=== PATIENT | male | born 1990 | race Caucasian/White ===

== ENCOUNTER 2024-12-05 10:05 | Outpatient (REF) | payer MEDICAID, SELFPAY ==
--- OUTSIDE RECORDS SUMMARY | 2024-12-05 09:15 | XMS_ITS | Encounter Summary ---
Author Organization [employer] Address [address] [facility] [address] [place] [address] Care Team Providers Care Nurse Coordinator Name Role Phone Brandie Reyez CNP Primary Care Provider [phone] Encounter Details Date Type Department Care Team (Late st Contact Info) Description 12/05/2024 9:15 AM EDT Office Visit [facility] [address] [place], [place] [phone] Brandie Reyez CNP [address] [place], [place] [phone] Encounter to establish care (Primary Dx); Encounter for immunization Social History Tobacco Use Types Packs/Day Years Used Date Smoking Tobacco: Never Smokeless Tobacco: Never Tobacco Cessation:Counseling Given: No Alcohol Use Standard Drinks/Week Comments Never 0 (1 standard drink = 0.6 oz pur e alcohol) Depression Answer Date Recorded Patient Health Questionnaire-9 Score 0 12/05/2024 Patient Health Questionnaire-9 Score 0 12/05/2024 Last PHQ-9: Questionnaire Data Not on file 0 12/05/2024 Housing Stability Answer Date Recorded What is your housing situation today? I have dania lawrence 08/19/[address] you li ve. Do you have problems with any of the following? None of the above 08/19/2024 Food Insecurity Answer Date Recorded Within the past 12 months, y ou worried that your food would run out before you got money to buy more: Never True 08/19/2024 Within the past 12 months,th e food you bought just didn't last and you didn't have enough money to get more: Never True Transportation Answer Date Recorded In the past 12 months, has l ack of transportation kept you from medical appts, meetings, work or from getting things needed for daily living? No 08/19/2024 Utilities Answer Date Recorded In the past 12 months, has t he electric, gas, oil or water company threatened to shut off services in your home? No 08/19/2024 Depression Answer Date Recorded Patient Health Questionnaire-2 Score 0 12/05/2024 Internet Access Answer Date Recorded Internet Access Q1 Yes 08/19/2024 Internet Access Q2 Not on file 08/19/2024 Sex and Gender Information Value Date Recorded Sex Assigned at Male 07/17/2023 3:57 PM EDT Legal Sex Male 2:32 PM EDT Gender Identity Male 07/17/2023 3:57 PM EDT Sexual Orientation Straight 08/25/2024 3: 45 PM EDT documented as of this encounter Last Filed Vital Signs Vital Sign Reading Time Taken Comments Blood Pressure 122/82 12/05/2024 9:15 AM EDT Pulse 68 12/05/2024 9:15 AM EDT Temperature 36.7 C (98.1 F) 12/05/2024 9:15 AM EDT Respiratory Rate 16 12/05/2024 9:15 AM EDT Oxygen Saturation - - Inhaled Oxygen Concentration - - Weight 103 kg (228 lb) 12/05/2024 9:15 AM EDT Height 177.8 cm (5' 10 ) 12/05/2024 9:15 AM EDT Body Mass Index 32.71 12/05/2024 9:15 AM EDT documented in this encounter Functional Status * Over the past 2 weeks, how often have you been bothered by any of the following problems? Question Answer Date of Assessment Author Patient Health Questionnaire -2 Score 0 12/05/2024 10:13 AM EDT Sa layne Alcala MA * Little interest or pleasure in doing things Answer Date of Assessment Author Not at all 12/05/2024 10:13 AM EDT Sushma Damian MA * Feeling down, depressed, or hopeless Answer Date of Assessment Author Not at all 12/05/2024 10:13 AM EDT Sushma Damian MA * Trouble falling or staying asleep, or sleeping too much Answer Date of Assessment Author Not at all 12/05/2024 10:13 AM EDT Sushma Damian MA * Feeling tired or having little energy Answer Date of Assessment Author Not at all 12/05/2024 10:13 AM EDT Sushma Damian MA * Poor appetite or overeating Answer Date of Assessment Author Not at all 12/05/2024 10:13 AM EDT Sushma Damian MA * Feeling bad about yourself - or that you are a failure or have let yourself or your family down Answer Date of Assessment Author Not at all 12/05/2024 10:13 AM EDT Sushma Damian MA * Trouble concentrating on things, such as reading the newspaper or watching television Answer Date of Assessment Author Not at all 12/05/2024 10:13 AM EDT Sushma Damian MA * Moving or speaking so slowly that other people could have noticed? Or the opposite - being so fidgety or restless that you have been moving around a lot more than usual. Answer Date of Assessment Author Not at all 12/05/2024 10:13 AM EDT Sushma Damian MA * Thoughts that you would be better off or hurting yourself in some way Answer Date of Assessment Author Not at all 12/05/2024 10:13 AM JAKET Sushma Damian MA * Patient Health Questionnaire-9 Score Answer Date of Assessment Author 0 12/05/2024 10:13 AM JAKET Sushma Damian MA * Over the last 2 weeks, how often have you been bothered by any of the following problems? Question Answer Date of Assessment Author Feeling nervous, anxious, or on edge 0 12/05/2024 10:10 AM EDT Sa layne Alcala MA Not being able to stop or control worrying 0 12/05/2024 10:10 AM JAKET Sa layne Alcala MA Worrying too much about different things 0 12/05/2024 10:10 AM EDT Sa layne Alcala MA Trouble relaxing 0 12/05/2024 10:10 AM JAKET Sushma Alcala MA Being so restless that it is hard to sit still 0 12/05/2024 10:10 AM EDT Sa layne Alcala MA Becoming easily annoyed or irritable 0 12/05/2024 10:10 AM EDT Sa layne Alcala MA Feeling afraid as if somethi ng awful might happen 0 12/05/2024 10:10 AM EDT Sa layne Alcala MA ARSENIO-7 Total Score 0 12/05/2024 10:10 AM EDT Sushma Alcala MA documented as of this encounter Progress Notes * Brandie Reyez CNP - 12/05/2024 9:15 AM EDT Subjective: Deep Ramires is a 34 y.o. male who presents to the office for a new patient visit. Previous PCP unknown. Interim history: Past surgical history significant for a skin graft performed approximately one month ago for a wound; no associated injury. Hospitalized for the skin graft procedure. No current open wound; skin graft site is enclosed and healing well Current concerns: Denies any acute concerns today Problem List[1] Surgical History[2] Family History[3] Social History Living situation: secure housing Substance use: denies substance use besides marijuana. Sexual activity: Sexually active with AFAB partner, declines STI screening today. Mental health: Denies any mental health concerns today Current Medications[4] There is no immunization history on file for this patient. Allergies[5] Review of Systems Constitutional: Negative for chills, fatigue, fever and unexpected weight change. HENT: Negative. Eyes: Negative. Respiratory: Negative for chest tightness, shortness of breath and wheezing. Cardiovascular: Negative for chest pain and palpitations. Gastrointestinal: Negative. Endocrine: Negative. Genitourinary: Negative. Musculoskeletal: Negative. Allergic/Immunologic: Negative. Neurological: Negative. Psychiatric/Behavioral: Negative. Vitals: 12/05/24 0915 BP: 122/82 BP Location: Left arm Patient Position: Sitting BP Cuff Size: Adult Pulse: 68 Resp: 16 Temp: 98.1 ??F (36.7 ??C) TempSrc: Oral Weight: 228 lb (103 kg) Height: 5' 10 (1.778 m) Physical Exam Vitals reviewed. Constitutional: General: He is not in acute distress. Appearance: Normal appearance. He is not ill-appearing, toxic-appearing or diaphoretic. HENT: Head: Normocephalic and atraumatic. Cardiovascular: Rate and Rhythm: Normal rate and regular rhythm. Pulses: Normal pulses. Heart sounds: Normal heart sounds. No murmur heard. No friction rub. No gallop. Pulmonary: Effort: Pulmonary effort is normal. No respiratory distress. Breath sounds: Normal breath sounds. No stridor. No wheezing, rhonchi or rales. Chest: Chest wall: No tenderness. Musculoskeletal: Right lower leg: No edema. Left lower leg: No edema. Neurological: General: No focal deficit present. Mental Status: He is alert and oriented to person, place, and time. Mental status is at baseline. Psychiatric: Mood and Affect: Mood normal. Behavior: Behavior normal. Thought Content: Thought content normal. Judgment: Judgment normal. Problem List Items Addressed This Visit None Visit Diagnoses Encounter to establish care - Primary -34 y/o Male without any PMH. No concerns today. Normal PE. - Ordered routine fasting blood work including liver function tests, kidney function tests, anemia screening, and cholesterol panel. Instructed to present to the lab with name and date of for specimen collection. - Advised that if laboratory results are normal, no follow-up communication will occur. Instructed to call the office with any specific questions about laboratory results. Will be contacted only if any laboratory results are abnormal. - Planned to administer first dose of HPV vaccine today however facility does not have adult HPV vaccinations. Will call pharmacy to order vaccination. Plan to catch-up HPV vaccination series due to age outside standard range. Scheduled subsequent HPV vaccine doses: second dose in approximately 2 months, third dose in approximately 6 months. Nurse visits to be arranged for administration of the remaining doses. - Recommended annual physical examination, with next routine physical to be scheduled in one year. Advised to contact the office for any acute concerns or new health issues prior to the next annual visit. Routine Screening and Health Maintenance Optometry: Yes has vision home Dental: Yes has dental home Lab Review: no lab studies available for review at time of visit, new studies ordered today Routine Cancer Screening Colon CA: n/a Lung CA: n/a PSA: n/a This note was drafted using Ambient (AI) technology. The patient/patient's guardian has been informed and has consented to the use of this technology: Yes [1] There is no problem list on file for this patient. [2] No past surgical history on file. [3] No family history on file. [4] Current Outpatient Medications Medication Sig Dispense Refill Acetaminophen Extra Strength 500 MG tablet TAKE 2 TABLETS BY MOUTH EVERY 6 HOURS NEEDED FOR FEVER (Patient not taking: Reported on 12/05/2024) cephalexin (Keflex) 500 MG capsule Take 1 capsule by mouth every 6 (six) hours. (Patient not taking: Reported on 12/05/2024) ibuprofen 600 MG tablet Take 1 tablet by mouth every 6 (six) hours during the day. (Patient not taking: Reported on 12/05/2024) mupirocin (Bactroban) 2 % ointment apply topically 3 times a day for 7 days (Patient not taking: Reported on 12/05/2024) oxyCODONE (Oxy-IR) 5 MG immediate release capsule TAKE 1 CAPSULE BY MOUTH EVERY 6 HOURS FOR 3 DAYS, NEEDED FOR PAIN (Patient not taking: Reported on 12/05/2024) oxyCODONE (Roxicodone) 5 MG immediate release tablet TAKE 1 TABLET BY MOUTH EVERY 6 HOURS NEEDEDFOR PAIN FOR 5 DAYS (Patient not taking: Reported on 12/05/2024) valACYclovir (Valtrex) 1 g tablet Take 1 tablet by mouth every 6 (six) hours during the day. (Patient not taking: Reported on 12/05/2024) valACYclovir (Valtrex) 500 MG tablet Take 1 tablet by mouth 2 times daily. (Patient not taking: Reported on 12/05/2024) No current facility-administered medications for this visit. [5] No Known Allergies documented in this encounter Plan of Treatment Scheduled Orders Name Type Priority Associated Diagnoses Orde r Schedule Lipid Panel, Standard Lab Routine Encounter to establish care Expected: 12/05/2024 (Approximate), Expires: 12/05/2025 CBC auto differential Lab Routine Encounter to establish care Expected: 12/05/2024 (Approximate), Expires: 12/05/2025 HIV-1/2 Antigen and Antibodies, Fourth Generation, with Reflexes Lab Routine Encounter to establish care Expected: 12/05/2024 (Approximate), Expires: 12/05/2025 Hepatitis C Antibody with Reflex to HCV, RNA, Quantitative, Real-Time PCR Lab Routine Encounter to establish care Expected: 12/05/2024, Expires: 12/05/2025 TSH W/Reflex to FT4 Lab Routine Encounter to establish care Expected: 12/05/2024 (Approximate), Expires: 12/05/2025 Comprehensive Metabolic Panel Lab Routine Encounter to establish care Expected: 12/05/2024 (Approximate), Expires: 12/05/2025 Hepatitis B Surface Antibody, Qualitative Lab Routine Encounter to establish care Expected: 12/05/2024 (Approximate), Expires: 12/05/2025 Hepatitis B Core Antibody, Total Lab Routine Encounter to establish care Expected: 12/05/2024 (Approximate), Expires: 12/05/2025 Hepatitis B surface antigen, EIA Lab Routine Encounter to establish care Expected: 12/05/2024 (Approximate), Expires: 12/05/2025 documented as of this encounter Visit Diagnoses Diagnosis Encounter to establish care- Primary Encounter for immunization documented in this encounter Additional Health Concerns Assessment Noted Time PHQ-9 Depression Total Score: 0 12/06/19 10:13 AM EDT documented as of this encounter Care Teams Nurse Coordinator Relationship Specialty Start Date End Date Brandie Reyez CNP [address] [place] [id number] PCP - General Family Medicine 12/05/24 documented as of this encounter
--- OUTSIDE RECORDS SUMMARY | 2024-12-05 10:51 | XMS_ITS | Encounter Summary ---
Author Organization [employer] Address [address] [facility] [address] [place] [address] Care Team Providers Care Contract Lead Name Role Phone Dereje Morrisjeffrey ECKERT Primary Care Provider [phone] Reason for Visit * Reason Onset Date Comments chart prep 12/05/2024 Encounter Details Date Type Department Care Team (Late st Contact Info) Description 12/05/2024 Telephone C [facility] [address] [place] [phone] [address] Sushma [place] chart prep Social History Tobacco Use Types Packs/Day Years Used Date Smoking Tobacco: Never Smokeless Tobacco: Never Alcohol Use Standard Drinks/Week Comments Never 0 [...] PM EDT documented as of this encounter Miscellaneous Notes * Telephone Encounter - Sushma Alcala MA - 12/05/2024 8:40 AM EDT Chart Prep Labs: not applicable Images: not applicable Referrals: not applicable Vaccines due: Covid, Tdap, Hep B, Td, and DTAP, HPV Screenings: STI Overdue care gaps: SBIRT, PHQ-9, and ARSENIO-7 documented in this encounter Plan of Treatment Not on file documented as of this encounter Visit Diagnoses Not on filedocumented in this encounter Additional Health Concerns Assessment Noted Time PHQ-9 Depression Total Score: 0 12/06/19 25 10:13 AM EDT documented as of this encounter Care Teams Contract Lead Relationship Specialty Start Date End Date Brandie Reyez CNP [address] [place] [id number] PCP - General Family Medicine 12/05/24 documented as of this encounter
--- OUTSIDE RECORDS SUMMARY | 2024-12-05 10:51 | XMS_ITS | Clinical Summary ---
Author Organization [employer] Address [address] [facility] [address] [place] [address] Care Team Providers Care Stripper Latex Name Role Phone Barndie Reyez CNP Primary Care Provider [phone] Allergies No known active allergies Medications mupirocin (Bactroban) 2 % ointment apply topically 3 times a day for 7 days 07/18/19 025 Discontinued valACYclovir (Valtrex) 1 g tablet Take 1 tablet by mouth every 6 (six) hours during the day. 07/18/19 25 025 Discontinued Acetaminophen Extra Strength 500 MG tablet TAKE 2 TABLETS BY MOUTH EVERY 6 HOURS NEEDED FOR FEVER 11/08/19 025 Discontinued cephalexin (Keflex) 500 MG capsule Take 1 capsule by mouth every 6 (six) hours. 11/04/19 25 025 Discontinued ibuprofen 600 MG tablet Take 1 tablet by mouth every 6 (six) hours during the day. 11/08/19 25 025 Discontinued oxyCODONE (Oxy-IR) 5 MG immediate release capsule TAKE 1 CAPSULE BY MOUTH EVERY 6 HOURS FOR 3 DAYS, NEEDED FOR PAIN 11/18/19 25 025 Discontinued oxyCODONE (Roxicodone) 5 MG immediate release tablet TAKE 1 TABLET BY MOUTH EVERY 6 HOURS NEEDED FOR PAIN FOR 5 DAYS 11/26/19 025 Discontinued valACYclovir (Valtrex) 500 MG tablet Take 1 tablet by mouth 2 times daily. 11/16/19 025 Discontinued Active Problems No known active problems Encounters Date Type Department Care Team Description 12/05/2024 9:15 AM EDT Office Visit [facility] [address] [place] [address] Brandie Reyez CNP Encounter to establish care (Primary Dx); Encounter for immunization 12/05/2024 Travel 12/05/2024 Telephone [facility] [address] [place] [phone] Sushma Alcala MA chart prep 11/28/2024 Travel from Last 3 Months Immunizations Immunization Administration Dates Next Due Moderna Covid-19 Vaccine 12+ 07/02/2020,06/04/19 21 Tdap 01/26/2021 Social History Tobacco Use Types Packs/Day Years [...] Orientation Straight 08/25/2024 3: 45 PM EDT Last Filed Vital Signs Vital Sign Reading [...] Mass Index 32.71 12/05/2024 9:15 AM EDT Plan of Treatment Health Maintenance Due Date Last Done Comments HIV Screening 1988 Lipid Panel 1988 Family Planning (PISQ) 09/08/2003 HPV Vaccines (1 - Male 3-dos e series) 09/08/2003 Hepatitis C Screening 2006 Hepatitis B Vaccines (1 of 3 - 19+ 3-dose series) 09/08/2007 COVID-19 Vaccine (3 - 2023-2 5 season) 2023 07/02/2020, 06/04/2020 Influenza Vaccine (#1) 2024 SDOH Screening 08/19/2025 08/19/2024 Disability Screening 11/28/2025 11/28/2024 Alcohol/Substance Use Screening 12/05/2025 12/05/2024 Depression Screening 12/05/2025 12/05/2024, 12/05/2024 DTaP/Tdap/Td Vaccines (2 - T d or Tdap) 01/26/2031 01/26/2021 Zoster Vaccines (1 of 2) 2038 RSV Patients and Patients Aged 60 years or older (1 - 1-dose 75+ series) 09/08/2063 Tobacco Screening Discontinued 12/05/2024 HIB Vaccines Aged Out No longer eligi ble based on patient's age to complete this topic Hepatitis A Vaccines Aged Out No long er eligible based on patient's age to complete this topic IPV Vaccines Aged Out No longer eligi ble based on patient's age to complete this topic Meningococcal B Vaccine Aged Out No l onger eligible based on patient's age to complete this topic Meningococcal Vaccine Aged Out No gita javier eligible based on patient's age to complete this topic Pneumococcal Vaccine: Pediatrics (0 to 5 Years) and At-Risk Patients (6 to 49) Years Aged Out No longer eligible based on patient's age to complete this topic RSV under 20 months Aged Out No longe r eligible based on patient's age to complete this topic Rotavirus Vaccines Aged Out No longer eligible based on patient's age to complete this topic Insurance [employer] Care Teams Stripper Latex Relationship Specialty Start Date End Date Brandie Reyez CNP [address] [place] [phone] PCP - General Family Medicine 12/05/24
--- OUTSIDE RECORDS SUMMARY | 2024-12-05 10:51 | XMS_ITS | Encounter Summary ---
Author Organization [employer] Address [address] [facility] [address] [place] [address] Care Team Providers Care Sanding Machine Tender Automatic Name Role Phone Brandie Reyez TOMEKA Primary Care Provider [phone] Encounter Details Date Type Department Care Team (Latest Contact Info) Description 12/05/2024 Travel Social History Tobacco Use Types Packs/Day Years [...] PM EDT documented as of this encounter Functional Status * Over the [...] Not at all 12/05/2024 10:13 AM EDT Ssuhma Damian MA * Poor appetite or overeating [...] 10:13 AM JAKET Sushma Damian MA * Moving or speaking so slowly that other people could have noticed? Or the opposite - being so fidgety or restless that you have been moving around a lot more than usual. Answer Date of Assessment Author Not at all 12/05/2024 10:13 AM JAKET Sushma Damian MA * Thoughts that you would be better off or hurting yourself in some way Answer Date of Assessment Author Not at all 12/05/2024 10:13 AM EDT Sushma Damian MA * Patient Health Questionnaire-9 Score Answer Date of Assessment Author 0 12/05/2024 10:13 AM EDT Sushma Damian MA * Over the last 2 weeks, how often have you been bothered by any of the following problems? Question Answer Date of Assessment Author Feeling nervous, anxious, or on edge 0 12/05/2024 10:10 AM EDT Sa layne Alcala MA Not being able to stop or control worrying 0 12/05/2024 10:10 AM EDT Sa layne Alcala MA Worrying too much about different things 0 12/05/2024 10:10 AM EDT Sa layne Alcala MA Trouble relaxing 0 12/05/2024 10:10 AM EDT Sushma Alcala MA Being so restless that [...] Alcala MA documented as of this encounter Plan of Treatment Not on file documented as of this encounter Visit Diagnoses Not on filedocumented in this encounter Additional Health Concerns Assessment Noted Time PHQ-9 Depression Total Score: 0 12/06/19 10:13 AM EDT documented as of this encounter Care Teams Sanding Machine Tender Automatic Relationship Specialty Start Date End Date Brandie Reyez CNP [address] [place] [id number] PCP - General Family Medicine 12/05/24 documented as of this encounter
[2024-12-05 14:35] LABS: MANUAL DIFF FLAG NO
[2024-12-05 14:48] LABS: Hematocrit 38.6 % (42.0-52.0); Hemoglobin 13.3 g/dl (14.0-18.0); Imm Gran Abs Auto 0.02 X10*3/uL (0.00-0.03); Imm Gran Pct Auto 0.3 % (0.0-0.4); Lymphocytes Absolute Auto 2.1 X10*3/uL (1.2-4.9); Mean Corpuscular HGB Conc 34.5 g/dl (31.0-36.0); Mean Corpuscular Hemoglobin 28.1 pg (27.0-33.0); Mean Corpuscular Volume 81.4 fL (80.0-98.0); NRBC Abs Auto 0.000 X10*3/uL (0.0-0.012); NRBC Pct Auto 0.0 /100WBC (0.0-0.2); Platelet Count 247 X10*3/uL (160-400); Red Blood Count 4.74 X10*6/uL (4.60-5.80); White Blood Count 7.6 X10*3/uL (4.8-10.8)
[2024-12-05 15:16] LABS: Alanine Aminotransferase 17 U/L (0-40); Albumin Level 4.3 g/dL (3.5-5.0); Alkaline Phosphatase 114 U/L (39-117); Anion Gap 11 (12-20); Aspartate Amino Transferase 25 U/L (5-37); Blood Urea Nitrogen 15 mg/dL (9-16); Calcium 9.2 mg/dL (8.4-10.2); Carbon Dioxide 27 mmol/L (22-29); Chloride 105 mmol/L (96-108); Cholesterol 184 mg/dL (<200); Estimated Glomerular Filt Rate > 60; HDL Cholesterol 34 mg/dL (>40); Potassium 4.0 mmol/L (3.3-5.1); Sodium 139 mmol/L (135-145); Total Protein 7.2 g/dL (6.5-8.0); Triglycerides 134 mg/dL (<150)
[2024-12-06 04:05] LABS: HBS Num1 > 1000.00 mIU/mL (0-7.99); HBc Num1 0.07 S/CO (0.00-0.79); HBsAGNum1 0.46 S/CO (0.00-0.99); HIV Num 1 0.05 S/CO (0.00-0.99); Hepatitis B Surface Antigen Negative (Negative); ~HepC Num1 0.11 S/CO (0.00-0.79); ~Hepatitis B Surface Antibody REACTIVE (Nonreactive); ~Hepatitis C Antibody Nonreactive (Nonreactive)
== END 2024-12-05 10:06 | disposition home or self-care (01) ==
LOC: HO.CHCLDS 10:05
DX: Z11.59 Encounter for screening for other viral diseases (principal); Z11.4 Encounter for screening for human immunodeficiency virus [HIV]; Z76.89 Persons encountering health services in other specified circumstances
CPT/HCPCS: 36415; 80053; 80061; 84443; 85025; 86704; 86706; 86803; 87340; 87389